=== PATIENT | male | born 1950 | race Caucasian/White ===

== ENCOUNTER 2019-12-10 08:11 | Day surgery (SDC) | payer MEDICARE, BC ==
[~2019-12-10 08:11] MED LIST: Lactated Ringers 1,000 ML IV SCH; Lidocaine 1%/Sod Bicarbonate in NS 8.4% 1 ML Syringe IDERM PRN; Sodium Chloride 0.9% 10 ML Syringe FLUSH PRN
[2019-12-10] MEDS ORDERED: Midazolam 1 MG/ML 2 ML SDV ONE (08:29)
[2019-12-10] MEDS ORDERED: Rocuronium 50 MG/5 ML Vial ONE (08:29)
[2019-12-10] MEDS ORDERED: Ondansetron 4 MG/2 ML SDV ONE (08:29)
[2019-12-10] MEDS ORDERED: Propofol 200 MG/20 ML SDV ONE (08:29)
[2019-12-10] MEDS ORDERED: fentaNYL 250 MCG/5 ML SDV ONE (08:29)
[2019-12-10] MEDS ORDERED: Lidocaine 1% 4 ML ONE (08:30)
[2019-12-10] MEDS ORDERED: ceFAZolin 1 GM Vial ONE (08:33)
--- NOTE | 2019-12-10 08:46 | PCM.PREANE ---
Preanesthetic Assessment - Anesthesia/Transfusion/Family Hx Anesthesia History: Prior Anesthesia Without Reaction Family History of Anesthesia Reaction: No Transfusion History: No Prior Transfusion(s) - Review of Systems General: No Symptoms Pulmonary: No Symptoms Cardiovascular: No Symptoms Gastrointestinal: No Symptoms Neurological: Numbness (left arm hand), Tingling (left arm and hand) Other: Reports: Diabetes (110 this am) - Physical Assessment NPO Status Date: 12/09/19 NPO Status Time: 00:00 Height: 1.78 m Weight: 99.9 kg ASA Class: 3 Mental Status: Alert & Oriented x3 Airway Class: Mallampati = 2 Dentition: Reports: Dentures (top) Thyro-Mental Finger Breadths: 2 Mouth Opening Finger Breadths: 2 ROM/Head Extension: Full Lungs: Clear to Auscultation, Normal Respiratory Effort Cardiovascular: Regular Rate, Regular Rhythm - Lab Values: Laboratory Last Values MRSA (PCR) Negative 11/11/19 09:34 - Imaging/EKG Impressions: EKG SB rate 59 RBBB - Allergies Allergies/Adverse Reactions: Allergies Allergy/AdvReac Type Severity Reaction Status Date / Time atorvastatin [From Lipitor] Allergy Muscle Verified 12/09/19 15:07 Aches bee venom protein (honey bee) Allergy Anaphylactic Verified 12/09/19 15:07 Shock ciprofloxacin [From Cipro] Allergy Muscle Verified 12/09/19 15:07 Aches doxycycline Allergy Nausea and Verified 12/09/19 15:07 Vomiting erythromycin base Allergy Stomach Verified 12/09/19 15:07 Upset ezetimibe [From Zetia] Allergy Muscle Verified 12/09/19 15:07 Weakness naproxen [From Naprosyn] Allergy Shortness Verified 12/09/19 15:07 of Breath - Anesthesia Plan Pre-Op Medication Ordered: Beta Justina Beta Justina: Metoprolol Med Last Dose Date: 12/10/19 Med Last Dose Time: 06:00 - Acknowledgements Anesthesia Type Planned: General Anesthesia Pt an Appropriate Candidate for the Planned Anesthesia: Yes Alternatives and Risks of Anesthesia Discussed w Pt/Guardian: Yes Pt/Guardian Understands and Agrees with Anesthesia Plan: Yes PreAnesthesia Questionnaire HEENT History: Reports: Impaired Vision, Sinusitis Cardiovascular History: Reports: Bypass, CAD, High Cholesterol, Hypertension, Stents, Other (See Below) Other Cardiovascular History: right bundle branch block Respiratory History: Reports: Other (See Below) Other Respiratory History: wheezing, interstitial lung disease,hypoxia, upper respiratory infection Genitourinary History: Reports: BPH, Other (See Below) Other Genitourinary History: dysura, prostatitis, glucosuria SOCIAL WORK THERAPIST History: Reports: None Musculoskeletal History: Reports: Other (See Below) Other Musculoskeletal History: SI joint pain, low back pain, right cubital tunnel syndrome Neurological History: Reports: Migraines, Other (See Below) Other Neuro History: numbness and tingling Psychiatric History: Reports: None Endocrine/Metabolic History: Reports: Diabetes, Type II Hematologic History: Reports: None Immunologic History: Reports: None Oncologic (Cancer) History: Reports: None Dermatologic History: Reports: Other (See Below) Other Dermatologic History: actinic keratosis - Past Surgical History Head Surgeries/Procedures: Reports: None HEENT Surgical History: Reports: None Cardiovascular Surgical History: Reports: Coronary Artery Bypass Respiratory Surgical History: Reports: None GI Surgical History: Reports: Appendectomy, Colonoscopy, Hernia, Inguinal, Hernia Repair/Other Female Surgical History: Reports: None Male Surgical History: Reports: None Endocrine Surgical History: Reports: None Neurological Surgical History: Reports: Laminectomy, Lumbar Spine Other Neurological Surgeries/Procedures: L2L3 left hemilaminotomy Other Musculoskeletal Surgeries/Procedures:: bilateral rotator cuff repairs, left ring finger amputation/revision Oncologic Surgical History: Reports: None Dermatological Surgical History: Reports: None - SUBSTANCE USE Smoking Status *Q: Former Smoker Tobacco Use Within Last Twelve Months: No Second Hand Smoke Exposure: No Days Per Week of Alcohol Use: 0 Number of Drinks Per Day: 0 Total Drinks Per Week: 0 Recreational Drug Use History: No - HOME MEDS Home Medications: Home Meds Ascorbic Acid [Vitamin C] 3,000 mg PO DAILY 12/09/19 [History] Aspirin [Halfprin] 81 mg PO DAILY 12/09/19 [History] Clopidogrel Bisulfate [Clopidogrel] 75 mg PO DAILY 12/09/19 [History] EPINEPHrine [Epipen] 1 dose IM ONETIME PRN 12/09/19 [History] Finasteride 5 mg PO DAILY 12/09/19 [History] Lactobacillus Acidophilus [Probiotic] 1 cap PO DAILY 12/09/19 [History] Losartan/Hydrochlorothiazide [Losartan-HCTZ 50-12.5 MG] 1 tab PO DAILY 12/09/19 [History] Magnesium 250 mg PO DAILY 12/09/19 [History] Metoprolol Succinate 25 mg PO DAILY 12/09/19 [History] Nitroglycerin [Nitrostat] 0.4 mg PO DAILY 12/09/19 [History] Nortriptyline 25 mg PO BEDTIME 12/09/19 [History] Rosuvastatin Calcium [Crestor] 40 mg PO DAILY 12/09/19 [History] Tamsulosin [Flomax] 0.4 mg PO DAILY 12/09/19 [History] Ubidecarenone [Coq-10] 100 mg PO DAILY 12/09/19 [History] metFORMIN HCl [Metformin HCl] 1,000 mg PO BID 12/09/19 [History] traMADol HCl [Tramadol HCl] 100 mg PO Q6H PRN 12/09/19 [History] - CURRENT (IN HOUSE) MEDS Current Meds: Current Medications Lactated Ringer's (Ringers, Lactated) 1,000 mls @ 125 mls/hr IV ASDIRECTED CHRYSTAL Stop: 12/10/19 23:00 Lidocaine/Sodium Bicarbonate (Buffered Lidocaine 1% In Ns 8.4%) 0.25 ml IDERM ONETIME PRN PRN Reason: Prior to IV Start Stop: 12/10/19 18:00 Sodium Chloride (Saline Flush) 10 ml FLUSH ASDIRECTED PRN PRN Reason: Keep Vein Open Stop: 12/10/19 18:00 Discontinued Medications Cefazolin Sodium (Ancef) Confirm Administered Dose 2 gm .ROUTE .STK-MED ONE Stop: 12/10/19 08:34 Fentanyl (Sublimaze) Confirm Administered Dose 250 mcg .ROUTE .STK-MED ONE Stop: 12/10/19 08:30 Lidocaine HCl (Xylocaine-Mpf 1%) Confirm Administered Dose 4 mls @ as directed .ROUTE .STK-MED ONE Stop: 12/10/19 08:31 Midazolam HCl (Versed 1 Mg/Ml) Confirm Administered Dose 2 mg .ROUTE .STK-MED ONE Stop: 12/10/19 08:30 Ondansetron HCl (Zofran) Confirm Administered Dose 4 mg .ROUTE .STK-MED ONE Stop: 12/10/19 08:30 Propofol (Diprivan 20 Ml) Confirm Administered Dose 200 mg .ROUTE .STK-MED ONE Stop: 12/10/19 08:30 Rocuronium Timber (Zemuron) Confirm Administered Dose 50 mg .ROUTE .[facility] ONE Stop: 12/10/19 08:30
[2019-12-10] MEDS ORDERED: ePHEDrine/Normal Saline 25 MG/5 ML Syringe ONE (09:19)
[2019-12-10] MEDS ORDERED: Phenylephrine/Normal Saline 100 MCG/ML 10 ML Syringe ONE (09:31)
[2019-12-10] MEDS ORDERED: Lactated Ringers 1,000 ML ONE (09:38)
[2019-12-10] MEDS: Bupivacaine 0.25% 10 ML SDV ONE ×2 (09:43→09:46)
[2019-12-10] MEDS ORDERED: Ketorolac 30 MG/ML SDV ONE (09:53)
[2019-12-10] MEDS ORDERED: fentaNYL 100 MCG/2 ML SDV IVPUSH PRN (10:15)
--- NOTE | 2019-12-10 10:16 | PCM.POSTAN ---
POST ANESTHESIA ASSESSMENT - MENTAL STATUS Mental Status: Alert, Oriented - VITAL SIGNS Vital Signs: Last Vital Signs Temp 36.4 C 12/10/19 08:25 Pulse 66 12/10/19 08:25 Resp 16 12/10/19 08:25 BP 139/74 12/10/19 08:25 Pulse Ox 96 12/10/19 08:25 - RESPIRATORY Respiratory Status: Respiratory Rate WNL, Airway Patent, O2 Saturation Stable, Supplemental Oxygen - CARDIOVASCULAR CV Status: Pulse Rate WNL, Blood Pressure Stable - GASTROINTESTINAL GI Status: No Symptoms - PAIN Pain Score: 0 - POST OP HYDRATION Hydration Status: Adequate & Stable - OBSERVATIONS Free Text/Narrative:: no anesthesia complications noted
[2019-12-10] MEDS ORDERED: Acetaminophen/HYDROcodone 325-5 MG Tab PO PRN (10:39)
--- NOTE | 2019-12-10 11:01 | PCM48HPAN ---
Post Anesthesia Note - EVALUATION WITHIN 48HRS OF ANESTHETIC Vital Signs in Normal Range: Yes Patient Participated in Evaluation: Yes Respiratory Function Stable: Yes Airway Patent: Yes Cardiovascular Function Stable: Yes Hydration Status Stable: Yes Pain Control Satisfactory: Yes Nausea and Vomiting Control Satisfactory: Yes Mental Status Recovered: Yes Vital Signs: Last Vital Signs Temp 36.7 C 12/10/19 10:09 Pulse 66 12/10/19 08:25 Resp 10 L 12/10/19 10:45 BP 115/54 L 12/10/19 10:45 Pulse Ox 95 12/10/19 10:45 - COMMENTS/OBSERVATIONS Free Text/Narrative:: no anesthesia complications noted
--- NOTE | 2019-12-16 12:59 | PCM.OPNOTE ---
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
--- NOTE | 2019-12-16 13:34 | OR ---
DATE OF OPERATION: 12/10/2019 SURGEON: Quintin Haney MD OPERATION PERFORMED: Right ulnar nerve decompression. 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 ANESTHESIA: General LMA with local. ANESTHESIA PROVIDER: Weston Ayala CRNA. CROSSING WATCHMAN: Tayrn Angeles LPN. ESTIMATED BLOOD LOSS: 5 mL. COMPLICATIONS: None. CONDITION: Stable. DESCRIPTION OF PROCEDURE: The patient was identified in the preoperative holding area. Proper site was marked and identified by the surgeon. The patient was taken back to operating theater where after adequate anesthesia the patient's right upper extremity was sterilely prepped and draped in the usual sterile fashion. OR time-out was performed. The patient received 2 g IV Ancef. A sterile tourniquet was then applied. The right upper extremity was then exsanguinated. Tourniquet was insufflated to 225 mmHg. Standard curvilinear incision was made centered over the cubital tunnel in the triceps intermuscular septum. This was taken down and the fat stripe was identified. The ulnar nerve was then identified. I did resect the triceps intermuscular septum all the way proximally and made sure to have it released. At this time, attention was turned down distally towards the cubital tunnel. The ulnar nerve was then decompressed all the way to the cubital tunnel and then the flexor forearm fascia. It was noted to be completely released throughout. The patient otherwise had no other scar tissue. The nerve was otherwise intact, and there was no subluxation noted with elbow range of motion after it had been decompressed, so no transposition would be needed. Adequate saline was then irrigated through the wound. 2-0 Vicryl was used subcutaneously, and brianna were used for the skin. The patient was placed in a sterile soft dressing and a posterior slab splint and sent to PACU in stable condition. MMODAL /[id number]
== END 2019-12-10 12:18 | disposition home or self-care (01) ==
LOC: JD.SDS 08:11
PROVIDERS: ATTEND Orthopaedic Surgery
DX: G56.21 Lesion of ulnar nerve, right upper limb (principal); I10 Essential (primary) hypertension; I25.10 Atherosclerotic heart disease of native coronary artery without angina pectoris; E11.65 Type 2 diabetes mellitus with hyperglycemia; E78.2 Mixed hyperlipidemia; E78.00 Pure hypercholesterolemia, unspecified; N40.0 Benign prostatic hyperplasia without lower urinary tract symptoms; Z91.030 Bee allergy status; Z88.1 Allergy status to other antibiotic agents; Z88.8 Allergy status to other drugs, medicaments and biological substances; Z87.891 Personal history of nicotine dependence; Z79.02 Long term (current) use of antithrombotics/antiplatelets; Z79.82 Long term (current) use of aspirin; Z79.84 Long term (current) use of oral hypoglycemic drugs; Z79.899 Other long term (current) drug therapy
CPT/HCPCS: 64718; 82962; 87641; A9270; J0690; J1885; J2001; J2250; J2370; J2704; J3010; J3490; J7050; J7120; 01710; J2405